=== PATIENT | male | born 1965 | race Caucasian/White ===

== ENCOUNTER 2025-01-01 18:12 | Observation (INO) | payer OTHER ==
[2025-01-01] MEDS ORDERED: Nitroglycerin 0.4 MG TAB 1 EACH ONE (18:27)
[2025-01-01 18:42] LABS: #Basophils 0.03 10x3/uL (0.0-0.2); #Eosinophils 0.16 10x3/uL (0.0-0.7); #Monocytes 0.59 10x3/uL (0.11-0.59); #Neutrophils 4.23 10x3/uL (1.40-6.50); %Basophils 0.4 % (0.0-1.0); %Eosinophils 2.2 % (0.0-10.0); %Lymphocytes 30.6 % (21.0-51.0); %Monocytes 8.1 % (0.0-10.0); %Neutrophils 58.3 % (42.0-75.0); Hematocrit 37.6 % (42.0-52.0); Hemoglobin 12.5 g/dL (14.0-18.0); Mean Corpuscular Hemoglobin 28.3 pg (27.0-31.0); Mean Corpuscular Volume 85.3 fL (78.0-98.0); Platelet Count 200 10x3/uL (130-400); Red Blood Cell (RBC) Count 4.41 mill/uL (4.70-6.10); White Blood Cell (WBC) Count 7.26 10x3/uL (4.8-10.8)
[2025-01-01 18:54] LABS: ALT (SGPT) 10 U/L (Less than 45); AST (SGOT) 16 U/L (11-34); Albumin 3.4 g/dL (3.1-4.5); Alkaline Phosphatase 77 U/L (40-110); Anion Gap 13 mmol/L (10-20); BUN (Urea Nitrogen) 13 mg/dL (8.4-25.7); Bilirubin, Total 0.8 mg/dL (0.3-1.2); Calc. Creatinine Clearance 0 mL/min (70-130); Calcium 7.3 mg/dL (7.8-10.44); Carbon Dioxide 25 mmol/L (22-29); Chloride 105 mmol/L (98-107); Globulin 2.8 g/dL (2.4-3.5); Glucose 107 mg/dL (70-105); Lipase 9 U/L (8-78); Potassium 3.2 mmol/L (3.5-5.1); Sodium 140 mmol/L (136-145)
[2025-01-01] MEDS ORDERED: CALCIUM GLUC 1 GM/NS 50 ML IV Bag ONE (20:09)
[2025-01-02] MEDS ORDERED: Glucagon 1 MG/ML KIT IM PRN (00:03)
[2025-01-02] MEDS ORDERED: Dextrose 50% Abboject 50 ML SYRINGE SLOW IVP PRN (00:03)
[2025-01-02 00:27] VITALS: BMI 31.6
[2025-01-02 00:40] LABS: Magnesium Less than 0.7 mg/dL (1.6-2.6)
[2025-01-02] MEDS: Acetaminophen 500 MG TAB PO SCH (01:12)
[2025-01-02] MEDS: Magnesium 2 GM/50 ML(in water) 2 GM in Premix 1 BAG IVPB SCH ×2 (01:13→06:35)
[2025-01-02 04:56] LABS: #Basophils 0.03 10x3/uL (0.0-0.2); #Eosinophils 0.18 10x3/uL (0.0-0.7); #Monocytes 0.59 10x3/uL (0.11-0.59); #Neutrophils 3.94 10x3/uL (1.40-6.50); %Basophils 0.4 % (0.0-1.0); %Eosinophils 2.6 % (0.0-10.0); %Lymphocytes 30.4 % (21.0-51.0); %Monocytes 8.6 % (0.0-10.0); %Neutrophils 57.7 % (42.0-75.0); Hematocrit 35.3 % (42.0-52.0); Hemoglobin 11.6 g/dL (14.0-18.0); Mean Corpuscular Hemoglobin 28.2 pg (27.0-31.0); Mean Corpuscular Volume 85.9 fL (78.0-98.0); Platelet Count 174 10x3/uL (130-400); Red Blood Cell (RBC) Count 4.11 mill/uL (4.70-6.10); White Blood Cell (WBC) Count 6.84 10x3/uL (4.8-10.8)
[2025-01-02 05:19] LABS: ALT (SGPT) 11 U/L (Less than 45); AST (SGOT) 14 U/L (11-34); Albumin 3.0 g/dL (3.1-4.5); Anion Gap 11 mmol/L (10-20); BUN (Urea Nitrogen) 11 mg/dL (8.4-25.7); Bilirubin, Total 0.6 mg/dL (0.3-1.2); Calc. Creatinine Clearance 165 mL/min (70-130); Calcium 7.1 mg/dL (7.8-10.44); Carbon Dioxide 25 mmol/L (22-29); Chloride 108 mmol/L (98-107); Globulin 2.4 g/dL (2.4-3.5); Glucose 153 mg/dL (70-105); Magnesium 0.9 mg/dL (1.6-2.6); Potassium 3.1 mmol/L (3.5-5.1); Sodium 141 mmol/L (136-145)
[2025-01-02 05:21] LABS: Alkaline Phosphatase 71 U/L (40-110)
[2025-01-02] MEDS: Levothyroxine 150 MCG TAB PO SCH (06:25)
[2025-01-02] MEDS: Nitroglycerin 0.4 MG TAB (25 Tab Bottle) SL PRN (07:31)
[2025-01-02] MEDS ORDERED: PHOS-NAK 1 PKT PACK PO SCH (07:45)
[2025-01-02] MEDS: Ferrous Sulfate 300 MG (5 mL) UDCUP PO SCH (09:05)
[2025-01-02] MEDS: Pantoprazole 40 MG DR.TAB PO SCH (09:05)
[2025-01-02] MEDS: Spironolactone 25 MG TAB PO SCH (09:05)
[2025-01-02] MEDS: Metoprolol Succinate XL 25 MG ER.TAB PO SCH (09:05)
[2025-01-02 09:23] LABS: HIV (1/2) Antibody/Antigen NONREACTIVE (NonReactive); HIV 1/2 INDEX 0.07 S/CO (<1.00)
[2025-01-02 11:36] VITALS: TEMP 97.6
[2025-01-02 13:11] LABS: Anion Gap 12 mmol/L (10-20); BUN (Urea Nitrogen) 11 mg/dL (8.4-25.7); Calc. Creatinine Clearance 178 mL/min (70-130); Calcium 7.8 mg/dL (7.8-10.44); Carbon Dioxide 23 mmol/L (22-29); Chloride 107 mmol/L (98-107); Glucose 147 mg/dL (70-105); Potassium 3.6 mmol/L (3.5-5.1); Sodium 138 mmol/L (136-145)
[2025-01-02] MEDS: Magnesium Oxide 400 MG TAB PO SCH (15:04)
[2025-01-02 16:30] VITALS: BP 161/77
== END 2025-01-02 19:18 ==
LOC: EEVIPCON 18:12 → ERS 18:12 → 2NO 23:11
PROVIDERS: ADMIT Family Medicine; ATTEND Family Medicine
DX: I25.118 Atherosclerotic heart disease of native coronary artery with other forms of angina pectoris (principal); I25.2 Old myocardial infarction; I48.0 Paroxysmal atrial fibrillation; E87.6 Hypokalemia; E83.42 Hypomagnesemia; E83.51 Hypocalcemia; E11.9 Type 2 diabetes mellitus without complications; E03.9 Hypothyroidism, unspecified; M25.559 Pain in unspecified hip; D64.9 Anemia, unspecified; Z87.891 Personal history of nicotine dependence; Z95.5 Presence of coronary angioplasty implant and graft; Z95.1 Presence of aortocoronary bypass graft; Z98.890 Other specified postprocedural states; Z88.5 Allergy status to narcotic agent; Z79.890 Hormone replacement therapy; Z79.4 Long term (current) use of insulin; Z79.02 Long term (current) use of antithrombotics/antiplatelets; Z79.899 Other long term (current) drug therapy
CPT/HCPCS: 36415; 36416; 71045; 80053; 83690; 83735; 84100; 84443; 84484; 85025; 87389; 93005; 94760; 96367; 96374; 96375; 96376; G0378; J0613; J3475